=== PATIENT | male | born 1980 | race Asian ===

== ENCOUNTER 2018-10-09 09:06 | Emergency (ER) | payer OTHER ==
[2018-10-09] MEDS ORDERED: NS 1,000 ML IV ONE ×2 (09:24→09:55)
[2018-10-09] MEDS ORDERED: ONDANSETRON 4 MG/2 ML VIAL IVP ONE (09:24)
[2018-10-09] MEDS ORDERED: KETOROLAC 30 MG/1 ML SDV IVP ONE (09:45)
[2018-10-09] MEDS ORDERED: FAMOTIDINE 20 MG in NS 100 ML IV ONE (09:45)
--- NOTE | 2018-10-09 09:49 | EDPHY ---
H & P Stated Complaint: Pt. states recently in [place],vomiting Tues.,generalized abd pain Time Seen by Provider: 10/09/18 09:12 HPI/ROS: CHIEF COMPLAINT: Abdominal pain History by patient HISTORY OF PRESENT ILLNESS: 37-year-old man with a history of irritable bowel syndrome presents complaining of 3 days of generalized abdominal pain which he describes as mostly upper but sometimes diffuse and characterizes as bloating. He denies burning or sharp pain. It does not radiate to his back. It has been associated with several episodes of vomiting as well as anorexia. He had 1 episode of loose nonbloody stools yesterday for which he took an Imodium ad has not had any further bowel movement. He denies any fever chills. He was in [place] eating much spicier food than usual and he feels that that was the trigger. He states was able to eat a little bit yesterday but then vomited up later. He has never had anything like this before. He says he gets bloated commonly related to his IBS but that it has never been this severe. He is to take probiotics for this but does not take anything now. He has never been to the ER for his IBS before. He denies any urinary symptoms. He has no prior history of surgeries on his belly. REVIEW OF SYSTEMS: As in HPI, and all other systems reviewed and are negative Source: Patient - Personal History Current Tetanus Diphtheria and Acellular Pertussis (TDAP): No - Medical/Surgical History Hx Asthma: No Hx Chronic Respiratory Disease: No Hx Diabetes: No Hx Cardiac Disease: No Hx Renal Disease: No Hx Cirrhosis: No Hx Alcoholism: No Hx HIV/AIDS: No Hx Splenectomy or Spleen Trauma: No Other PMH: Med hx-kidney stones. Surg-none - Social History Smoking Status: Never smoked - Physical Exam Exam: General Appearance: Alert, nontoxic-appearing. Eyes: Pupils equal and round, extraocular movements intact, no pallor or injection. Mouth: Mucous membranes moist. Pharynx clear Respiratory: Normal, effort, lungs are clear to auscultation. No wheezes, rales or rhonchi. Cardiovascular: Regular rate and rhythm. S1, S2, no murmurs, gallops or rubs appreciated Gastrointestinal: bowel sounds present and active, Abdomen is soft and mildly distended, mild left lower quadrant tenderness, no right upper quadrant or right lower quadrant tenderness, no masses Back: No CVA tenderness, no bony tenderness Neurological: Awake, alert and oriented x 3, no pronator drift, normal gait, no pronator drift Skin: Warm and dry, no rashes. Musculoskeletal: No deformities or tenderness. Extremities: full range of motion, no edema Psychiatric: Patient has normal affect, there is no agitation. Constitutional: Initial Vital Signs Temperature (C) 36.6 C 10/09/18 09:13 Heart Rate 67 10/09/18 09:13 Respiratory Rate 16 10/09/18 09:13 Blood Pressure 139/86 H 10/09/18 09:13 O2 Sat (%) 96 10/09/18 09:13 O2 Delivery Mode Room Air Allergies/Adverse Reactions: No Known Allergies Allergy (Verified 10/09/18 09:12) Home Medications: Medication Instructions Recorded Famotidine [Acid Controller] 20 mg PO HS #10 tablet 10/09/18 Ondansetron Odt [Zofran Odt 4 mg 4 mg PO Q4 PRN #12 tab 10/09/18 (*)] Medical Decision Making ED Course/Re-evaluation: 37-year-old man presents with abdominal pain described as bloating vomiting and diarrhea for 3 days. Patient has stable vital signs. He is nontoxic-appearing with a benign abdominal exam. Patient was given IV fluids, Zofran, famotidine and Toradol and on re-evaluation his symptoms had improved. He said his pain and bloating had resolved. Labs are notable for slightly elevated white blood cell count, a sodium that was just 1 point above the upper limit of normal in the rest electrolytes within normal limits. There is no evidence of hepatitis or biliary obstruction. Lipase was within normal limits suggesting no evidence of acute pancreatitis. This point I doubt appendicitis. I will send the patient home with a trial of phonating as well as Zofran as needed. We discussed return precautions and home care. Patient is discharged home in improved condition. - Data Points Laboratory Results: 10/09/18 10/09/18 09:51 09:20 POC Sodium 146 mEq/L H mEq/L (135-145) POC Potassium 3.6 mEq/L mEq/L (3.3-5.0) POC Chloride 101.0 mEq/L mEq/L (97-110) POC Total CO2 26 mEq/L mEq/L (22-31) POC BUN 6 mg/dL L mg/dL (7-23) POC Creatinine 0.8 mg/dL mg/dL (0.7-1.3) POC Glucose 149 mg/dL H mg/dL (70-100) POC Calcium 10.0 mg/dL mg/dL (8.5-10.4) POC Total Bilirubin 1.2 mg/dL mg/dL (0.1-1.4) POC AST 25 IU/L IU/L (17-59) POC ALT 36 IU/L IU/L (21-72) POC Alk Phosphatase 69 IU/L IU/L (38-126) POC Total Protein 7.7 g/dL g/dL (6.3-8.2) POC Albumin 4.5 g/dL g/dL (3.5-5.0) Lipase 84 IU/L IU/L (23-300) Medications Given: Discontinued Medications Sodium Chloride (Ns) 1,000 mls @ 0 mls/hr IV ONCE ONE PRN Reason: Wide Open Stop: 10/09/18 09:25 Last Admin: 10/09/18 09:24 Dose: 1,000 mls Famotidine 20 mg/ Sodium (Chloride) 102 mls @ 408 mls/hr IV EDNOW ONE Stop: 10/09/18 09:59 Last Admin: 10/09/18 10:06 Dose: 102 mls Sodium Chloride (Ns) 1,000 mls @ 0 mls/hr IV ONCE ONE PRN Reason: Wide Open Stop: 10/09/18 09:56 Last Admin: 10/09/18 09:55 Dose: 1,000 mls Ketorolac Tromethamine (Toradol) 15 mg IVP EDNOW ONE Stop: 10/09/18 09:46 Last Admin: 10/09/18 10:01 Dose: 15 mg Ondansetron HCl (Zofran) 4 mg IVP EDNOW ONE Stop: 10/09/18 09:25 Last Admin: 10/09/18 09:32 Dose: 4 mg Point of Care Test Results: CBC CBC Collection Date 10/09/18 CBC Collection Time 09:20 WBC 10.5 RBC 5.41 HGB 17.3 HCT 47.9 PLT 250 Neut # 9.4 Neut 89.9 LYMPH # 0.5 LYMPH 4.7 Other WBC # 0.6 Other WBC 5.4 MCV 88.5 Chemistry 10/09/18 09:51 POC Sodium 146 mEq/L H mEq/L (135-145) POC Potassium 3.6 mEq/L mEq/L (3.3-5.0) POC Chloride 101.0 mEq/L mEq/L (97-110) POC Total CO2 26 mEq/L mEq/L (22-31) POC BUN 6 mg/dL L mg/dL (7-23) POC Creatinine 0.8 mg/dL mg/dL (0.7-1.3) POC Glucose 149 mg/dL H mg/dL (70-100) POC Calcium 10.0 mg/dL mg/dL (8.5-10.4) POC Total Bilirubin 1.2 mg/dL mg/dL (0.1-1.4) POC AST 25 IU/L IU/L (17-59) POC ALT 36 IU/L IU/L (21-72) POC Alk Phosphatase 69 IU/L IU/L (38-126) POC Total Protein 7.7 g/dL g/dL (6.3-8.2) POC Albumin 4.5 g/dL g/dL (3.5-5.0) Departure - Departure Disposition: Home, Routine, Self-Care Clinical Impression: Vomiting and diarrhea Abdominal pain Qualifiers: Abdominal location: generalized Qualified Code(s): R10.84 - Generalized abdominal pain Condition: Good Instructions: Acute Nausea and Vomiting (ED), Gas and Bloating (ED), Abdominal Pain (ED) Additional Instructions: You were seen by Dr. Ashley Gay today. You may take Zofran as needed for nausea and vomiting. I recommended trial of famotidine nightly for the next 5 days. You may take ibuprofen as needed for pain. Return for any worsening or new concerns, including but not limited to inability to keep down fluids or medications, fever or uncontrolled pain.. Referrals: Walt Colon MD [Primary Care Provider] - As per Instructions Prescriptions: Famotidine [Acid Controller] 20 mg PO HS #10 tablet Ondansetron Odt [Zofran Odt 4 mg (*)] 4 mg PO Q4 PRN #12 tab PRN Reason: Nausea and vomiting
[2018-10-09 12:13] VITALS: BP 117/74
== END 2018-10-09 11:50 | disposition home or self-care (01) ==
LOC: CED 09:06
DX: R10.84 Generalized abdominal pain (principal); R11.10 Vomiting, unspecified; K58.9 Irritable bowel syndrome, unspecified
CPT/HCPCS: 80053-PO; 96374; J1885; J2405